=== PATIENT | male | born 1970 | race Caucasian/White ===

== ENCOUNTER → 2016-11-30 | Outpatient (CLI) | payer OTHER | LOC: FIMAGING 18:35 | PROVIDERS: ATTEND Physician Assistant | DX: M54.5 Low back pain (principal) ==

== ENCOUNTER → 2017-10-26 | Outpatient (CLI) | payer OTHER ==
[~2017-10-26] MED LIST: GADOBUTROL 10 ML VIAL IVP ONE
== END ==
LOC: FIMAGING 15:12
PROVIDERS: ATTEND Otolaryngology
DX: R90.82 White matter disease, unspecified (principal); J30.9 Allergic rhinitis, unspecified
CPT/HCPCS: A9585

== ENCOUNTER → 2017-11-23 | Outpatient (CLI) | payer OTHER | LOC: FIMAGING 13:47 | PROVIDERS: ATTEND Physician Assistant | DX: M25.512 Pain in left shoulder (principal); M25.712 Osteophyte, left shoulder ==

== ENCOUNTER → 2017-12-27 | Outpatient (CLI) | payer OTHER | LOC: FIMAGING 10:31 | PROVIDERS: ATTEND Physician Assistant | DX: S43.432A Superior glenoid labrum lesion of left shoulder, initial encounter (principal); M75.112 Incomplete rotator cuff tear or rupture of left shoulder, not specified as traumatic; M71.312 Other bursal cyst, left shoulder; M19.012 Primary osteoarthritis, left shoulder ==

== ENCOUNTER 2018-10-08 14:49 | Emergency (ER) | payer OTHER ==
--- NOTE | 2018-10-08 15:48 | EDPHY ---
H & P Stated Complaint: L shoulder Sx 5D [employer], SOB, concern PE Time Seen by Provider: 10/08/18 15:39 HPI/ROS: CHIEF COMPLAINT: Chest pain shortness of breath HISTORY OF PRESENT ILLNESS: The patient is a 48-year-old man who comes to the emergency department complaining of chest pain, shortness of breath, anxiety. He states that 5 days ago he had his bicep tendon repaired in his left shoulder. 2 days later he developed some pain in his left upper ankle area. That resolved but then yesterday he developed some mild chest pain and shortness of breath. It is persisted today. No fever. No cough. No upper respiratory symptoms. He is concerned for PE. No history of cardiac disease. He does have a history of childhood asthma but has not had any reactive airway disease symptoms in many years. Severity: Moderate Modifying factors: Worsened by deep inspiration REVIEW OF SYSTEMS: Constitutional: denies: chills, fever, recent illness, recent injury EENTM: denies: blurred vision, double vision, nose congestion Respiratory see HPI Cardiac: See HPI denies: irregular heart rate, lightheadedness, palpitations Gastrointestinal/Abdominal: denies: abdominal pain, diarrhea, nausea, vomiting, blood streaked stools Genitourinary: denies: dysuria, frequency, hematuria, pain Musculoskeletal: denies: joint pain, muscle pain Skin: denies: lesions, rash, jaundice, bruising Neurological: denies: headache, numbness, paresthesia, tingling, dizziness, weakness Hematologic/Lymphatic: denies: blood clots, easy bleeding, easy bruising Immunologic/allergic: denies: HIV/AIDS, transplant 10 systems reviewed and negative except as noted EXAM: GENERAL: Well-appearing, well-nourished and in no acute distress. HEAD: Atraumatic, normocephalic. EYES: Pupils equal round and reactive to light, extraocular movements intact, sclera anicteric, conjunctiva are normal. ENT: TMs normal, nares patent, oropharynx clear without exudates. Moist mucous membranes. NECK: Normal range of motion, supple without lymphadenopathy or JVD. LUNGS: Breath sounds clear to auscultation bilaterally and equal. No wheezes rales or rhonchi. HEART: Regular rate and rhythm without murmurs, rubs or gallops. ABDOMEN: Soft, nontender, normoactive bowel sounds. No guarding, no rebound. No masses appreciated. BACK: No CVA tenderness, no spinal tenderness, step-offs or deformities EXTREMITIES: Left arm in sling, no significant swelling or erythema. Normal range of motion, no pitting or edema. No clubbing or cyanosis. NEUROLOGICAL: Cranial nerves II through XII grossly intact. Normal speech, normal gait. 5/5 strength, normal movement in all extremities, normal sensation , normal reflexes PSYCH: Normal mood, normal affect. SKIN: Warm, dry, normal turgor, no visible rashes or lesions. Source: Patient Exam Limitations: No limitations - Personal History Current Tetanus/Diphtheria Vaccine: Unsure - Medical/Surgical History Hx Asthma: No Hx Chronic Respiratory Disease: No Hx Diabetes: No Hx Cardiac Disease: No Hx Renal Disease: No Hx Cirrhosis: No Hx Alcoholism: No Hx HIV/AIDS: No Hx Splenectomy or Spleen Trauma: No Other PMH: Shoulder Sx, hernia, back pain - Family History Significant Family History: No pertinent family hx - Social History Smoking Status: Never smoked Alcohol Use: Sober Drug Use: None Constitutional: Initial Vital Signs Temperature (C) 36.8 C 10/08/18 15:04 Heart Rate 94 10/08/18 15:04 Respiratory Rate 16 10/08/18 15:04 Blood Pressure 112/80 10/08/18 15:04 O2 Sat (%) 96 10/08/18 15:04 O2 Delivery Mode Room Air Allergies/Adverse Reactions: acetaminophen [From Vicodin] Allergy (Verified 10/08/18 15:03) bupropion [From Wellbutrin] Allergy (Verified 10/08/18 15:03) duloxetine [From Cymbalta] Allergy (Verified 10/08/18 15:03) escitalopram [From Lexapro] Allergy (Verified 10/08/18 15:03) hydrocodone [From Vicodin] Allergy (Verified 10/08/18 15:03) tramadol [From Ultram] Allergy (Verified 10/08/18 15:03) Medical Decision Making - Diagnostics EKG Interpretation: An EKG obtained and was read and documented in trace view. Please see trace view for full reading and report. Sinus rhythm no sign of right heart strain. No ischemic changes Imaging: Discussed imaging studies w/ call or contact centre operator Radiologist ED Course/Re-evaluation: I have not ordered a D-dimer because the patient is to high risk considering his recent surgery, leg pain and chest pain. If his D-dimer was negative I would consider it possible false negative. For this reasons I have ordered a CT angiogram directly. 6:20 p.[address]. we discussed the CT results. Patient is reassured. He does have air tracking down underneath his pectoralis from the surgery. This is likely responsible for his pain. He declines further workup or testing and is eager to go home. Differential Diagnosis: Partial list of the Differential diagnosis considered include but were not limited to; DVT, PE, pneumothorax, pneumonia and although unlikely based on the history and physical exam, I also considered postoperative infection, postoperative bleeding. I discussed these differential diagnoses and the plan with the patient as well as the usual and expected course. The patient understands that the diagnosis is provisional and that in medicine we are not always correct and that further workup is often warranted. Usual and customary warnings were given. All of the patient's questions were answered. The patient was instructed to return to the emergency department should the symptoms at all worsen or return, otherwise to followup with the physician as we discussed. - Data Points Laboratory Results: Laboratory Results 10/08/18 15:40 10/08/18 15:40 Point of Care Test Results: Chemistry 10/08/18 16:43 POC Troponin I 0.01 ng/mL ng/mL (0.00-0.08) Departure - Departure Disposition: Home, Routine, Self-Care Clinical Impression: Chest pain Qualifiers: Chest pain type: unspecified Qualified Code(s): R07.9 - Chest pain, unspecified Condition: Fair Instructions: Chest Pain (ED) Referrals: MIRELLA GRULLON [Primary Care Provider] - 2-3 days, call for appt.
[2018-10-08 16:01] LABS: PLATELET COUNT 283 10^3/uL (150-400)
--- NOTE | 2018-10-08 16:09 | CPEKG ---
Test Reason : OPEN Blood Pressure : / mmHG Vent. Rate : 081 BPM Atrial Rate : 081 BPM P-R Int : 156 ms QRS Dur : 097 ms QT Int : 371 ms P-R-T Axes : 074 084 067 degrees QTc Int : 431 ms Sinus rhythm Left atrial enlargement Confirmed by Jimmy Fernández ([id number]) on 10/08/2018 4:09:11 PM Referred By: Jimmy Fernández Confirmed By:Jimmy Fernández
[2018-10-08] MEDS ORDERED: IOPAMIDOL (ISOVUE 370) 100 ML BTL IV ONE ×2 (16:10→16:23)
[2018-10-08 16:13] LABS: INR 0.92 (0.83-1.16)
[2018-10-08 17:41] VITALS: BP 128/89
== END 2018-10-08 18:40 | disposition home or self-care (01) ==
DX: R07.9 Chest pain, unspecified (principal); R06.02 Shortness of breath
CPT/HCPCS: 84484-ER; Q9967